=== PATIENT | male | born 1940 | race Two or more races ===

== ENCOUNTER → 2016-10-05 | Outpatient (CLI) | payer OTHER ==
[~2016-10-05] VITALS: Ht 185.4 cm; Wt 111.5 kg
[~2016-10-05] MED LIST: FLAX SEED OIL1 EACH PO; GLUCOSAMINE1000 MG PO; KRILL OIL 1,001 EACH PO; LIPITOR40 MG PO; MULTI-DAY VITA1 EACH PO; NORVASC5 MG PO; TOPROL XL25 MG PO
== END | disposition home or self-care (01) ==
LOC: AMB 13:47
DX: R19.7 Diarrhea, unspecified (principal); D12.2 Benign neoplasm of ascending colon; D12.3 Benign neoplasm of transverse colon; K63.5 Polyp of colon; K57.30 Diverticulosis of large intestine without perforation or abscess without bleeding; Z87.891 Personal history of nicotine dependence; Z88.8 Allergy status to other drugs, medicaments and biological substances
CPT/HCPCS: 88305